=== PATIENT | female | born 1940 | race Caucasian/White ===

== ENCOUNTER 2022-08-03 15:13 | Emergency (ER) | payer MEDICARE ==
[2022-08-03 16:27] LABS: Basophils % (A) 0 %; Eosinophils # (A) 0.2 k/uL (0-0.7); Eosinophils % (A) 2 %; HCT 39.1 % (34.0-46.0); Lymphocytes # (A) 1.1 k/uL (1.0-4.8); Lymphocytes % (A) 12 %; MCH 33.2 pg (25.0-35.0); MCHC 33.3 g/dL (31.0-37.0); MCV 99.6 fL (80.0-100.0); Mean Platelet Volume 8.7; Monocytes # (A) 0.5 k/uL (0-1.0); Monocytes % (A) 5 %; Neutrophils # (A) 7.8 k/uL (1.3-7.7); Neutrophils % (A) 80 %; Platelet Count 236 k/uL (150-450); RBC 3.93 m/uL (3.80-5.40); RDW 12.6 % (11.5-15.5); WBC 9.8 k/uL (3.8-10.6)
[2022-08-03 16:41] LABS: Albumin 4.2 g/dL (3.5-5.0); Calcium 9.2 mg/dL (8.4-10.2); Total Bilirubin 1.9 mg/dL (0.2-1.3); Total Protein 7.1 g/dL (6.3-8.2)
[2022-08-03 16:52] LABS: Potassium 2.7 mmol/L (3.5-5.1)
[2022-08-03] MEDS ORDERED: POTASSIUM CHLORIDE ER 20 MEQ TAB.ER PO STA (17:03)
[2022-08-03] MEDS ORDERED: SODIUM CHLORIDE 0.9% 1,000 ML IV STA (17:06)
--- NOTE | 2022-08-03 17:54 | US ---
EXAMINATION TYPE: US abdomen limited DATE OF EXAM: 08/03/2022 COMPARISON: NONE CLINICAL HISTORY: pancreatitis, elevated LFT, elevated bili. Abdomen pain TECHNIQUE: Multiple sonographic images of the right upper quadrant are obtained. FINDINGS: EXAM MEASUREMENTS: Liver Length: 16.8 cm Gallbladder Wall: 0.2 cm CBD: 0.8 cm Right Kidney: 10.5 x 4.1 x 4.5 cm Pancreas: wnl Liver: wnl Gallbladder: wnl Evidence for sonographic Becker's sign: no CBD: dilated Right Kidney: wnl IMPRESSION: Common bile duct is large that could relate to gallbladder dysfunction. No gallstone seen.
--- NOTE | 2022-08-03 19:09 | CT ---
EXAMINATION TYPE: CT abdomen pelvis w con DATE OF EXAM: 08/03/2022 COMPARISON: None HISTORY: elevated LFTS, abd pain CT DLP: 840.3 mGycm CONTRAST: CT scan of the abdomen and pelvis is performed without Oral Contrast and with IV Contrast, patient in jected with 80 mL of Isovue 300. FINDINGS: LUNG BASES-: No visible nodule. No infiltrate. Sliding-type hiatal hernia. LIVER/GB: No calcified gallstones. No space occupying hepatic lesion. No intrahepatic biliary duct al prominence. Common bile duct is dilated at nearly 1 cm. Hyperemia gallbladder wall with a small am ount of pericholecystic fluid. No obvious obstructing calculus seen. PANCREAS: Inflammatory change an d edema about the pancreas compatible with acute pancreatitis. No evidence for a unusual collection s uch as pseudocyst or abscess. SPLEEN: No splenic enlargement. No lesion seen. ADRENALS: No nodule. No thickening. KIDNEYS/BLADDER: No hydronephrosis. No nephrolithiasis. No distinct renal mass. Urinary bladder g rossly unremarkable. BOWEL: Normal appendix. Normal bowel caliber. No inflammation. GENITAL ORGANS: Uterine calcifications may reflect underlying leiomyomatous change. No adnexal deanne s seen. LYMPH NODES: No greater than 1cm abdominal or pelvic lymph nodes are appreciated. AORTA: No significant abnormality. OSSEOUS STRUCTURES: No significant abnormality is seen. OTHER: No significant additional abnormality is seen. IMPRESSION: 1. Findings compatible with acute pancreatitis. 2. Hyperemia of the gallbladder wall with a small amount of pericholecystic fluid and mild dilatatio n of the intrahepatic biliary tree as well as the common bile duct.
--- NOTE | 2022-08-03 19:32 | ED ---
Abdominal Pain HPI - General Chief Complaint: Abdominal Pain Stated Complaint: pcp sent,abnormal labs Time Seen by Provider: 08/03/22 16:48 Source: patient Mode of arrival: ambulatory Limitations: no limitations - History of Present Illness Initial Comments: Patient is a 82-year-old female with a past medical history of hypertension who presents to the emergency department as requested from her primary care provider due to abnormal labs. Patient states 2 days ago she experienced generalized abdominal pain intermittently. No radiation. The same day she experienced nausea with 2 episodes of vomiting, nonbloody. Patient had 2 episodes of diarrhea yesterday, nonblodoy. States since yesterday all of her symptoms have resolved. She does not currently have abdominal pain, nausea, vomiting, or diarrhea. She was at her primary care office yesterday who anshu labs and found her liver enzymes and bilirubin to be elevated. There was also acute kidney injury. She was called today about results and sent to the emergency department. Patient states she feels well now. She denies fever, chills, burning with urination, abnormally colored urine and stools. Denies history of liver and gallbladder disease including hepatitis. Does admit to alcohol use, 2-3 glasses of wine a night. Denies drug use. Denies use of new medications. Patient's daughter is at bedside and states patient's skin seems a tinted yellow. - Related Data Home Medications Medication Instructions Recorded Confirmed Biotin 5 mg PO DAILY 08/03/22 08/03/22 Calcium Carbonate [Calcium] 600 mg PO DAILY 08/03/22 08/03/22 Cholecalciferol [Vitamin D3 (25 25 mcg PO DAILY 08/03/22 08/03/22 Mcg = 1000 Iu)] Cyanocobalamin (Vitamin B-12) 1,000 mcg PO DAILY 08/03/22 08/03/22 [Vitamin B-12] Glucosam/Aamir-Msm1/C/Getachew/Bosw 1 tab PO DAILY 08/03/22 08/03/22 [Glucosamine-Chondroitin Tablet] Losartan Potassium [Cozaar] 100 mg PO DAILY 08/03/22 08/03/22 Multivit-Min/FA/Lycopen/Lutein 1 tab PO DAILY 08/03/22 08/03/22 [Centrum Silver Tablet] Rosuvastatin [Crestor] 10 mg PO DAILY 08/03/22 08/03/22 Ubidecarenone [Co Q-10] 300 mg PO DAILY 08/03/22 08/03/22 hydroCHLOROthiazide [Hydrodiuril] 25 mg PO DAILY 08/03/22 08/03/22 Previous Rx's Medication Instructions Recorded Potassium Chloride ER [K-Dur 20] 20 meq PO BID #14 tab 08/03/22 Allergies Allergy/AdvReac Type Severity Reaction Status Date / Time No Known Allergies Allergy Verified 08/03/22 16:03 Review of Systems ROS Statement: Those systems with pertinent positive or pertinent negative responses have been documented in the HPI. ROS Other: All systems not noted in ROS Statement are negative. Past Medical History Past Medical History: Hyperlipidemia, Hypertension History of Any Multi-Drug Resistant Organisms: None Reported Past Surgical History: No Surgical Hx Reported Past Psychological History: No Psychological Hx Reported Smoking Status: Never smoker Past Alcohol Use History: Daily General Exam Limitations: no limitations General appearance: alert, in no apparent distress Head exam: Present: atraumatic, normocephalic, normal inspection Eye exam: Present: normal appearance, PERRL, EOMI. Absent: scleral icterus Respiratory exam: Present: normal lung sounds bilaterally. Absent: respiratory distress, wheezes, rales, rhonchi, stridor Cardiovascular Exam: Present: regular rate, normal rhythm, normal heart sounds. Absent: systolic murmur, diastolic murmur, rubs, gallop, clicks GI/Abdominal exam: Present: soft, normal bowel sounds. Absent: distended, tenderness, guarding, rebound, rigid Neurological exam: Present: alert, oriented X3, CN II-XII intact Psychiatric exam: Present: normal affect, normal mood Skin exam: Present: warm, dry, intact, normal color (no obvious jaundice ). Absent: rash Course Vital Signs 08/03/22 15:47 Temperature 97.1 F L Pulse Rate 87 Respiratory 16 Rate Blood Pressure 141/79 O2 Sat by Pulse 96 Oximetry Medical Decision Making - Medical Decision Making This is an 82-year-old female presenting with abnormal labs. Patient well- appearing and in no apparent distress. Afebrile. Abdomen is soft and nontender. There is no right upper quadrant tenderness. There is no obvious jaundice. There is no scleral icterus. Laboratory studies obtained. There is no leukocytosis. Potassium is critically low at 2.7. There is mild acute kidney injury at 1.09. Liver enzymes are elevated with AST of 56, ALT at 150, alk phos at 160. Bilirubin elevated at 1.9. Lipase extremely elevated at 3361. Amylase elevated at 163. Gallbladder ultrasound was obtained which shows common bile duct dilation that could relate to gallbladder dysfunction. No gallstones seen. CT of the abdomen and pelvis with contrast was obtained which showed findings compatible with acute pancreatitis. There is hyperemia of the gallbladder wall with a small amount pericholecystic fluid and mild dilation of the intrahepatic biliary tree as well as a common bile duct. Patient given a fluid bolus and potassium supplementation. Results discussed with patient. I highly encouraged admission for acute pancreatitis, nonspecific gallbladder findings, and hypokalemia however patient declined. Patient adamant that she has to go home to help her with peritoneal dialysis. Discussed risks of untreated conditions patient was diagnosed with today. Patient aware and will sign AGAINST MEDICAL ADVICE form. She will be discharged with potassium supplementation and instructed to have redraw of potassium by her primary care provider's office. Discussed acute pancreatitis in detail. Patient to follow up with GI specialist. Return parameters discussed. Patient verbalizes understanding. Dr. Cochran is my attending. - Lab Data Result diagrams: 08/03/22 16:00 08/03/22 16:00 Lab Results 08/03/22 08/03/22 08/03/22 Range/Units 16:00 16:00 16:00 WBC 9.8 (3.8-10.6) k/uL RBC 3.93 (3.80-5.40) m/uL Hgb 13.0 (11.4-16.0) gm/dL Hct 39.1 (34.0-46.0) % MCV 99.6 (80.0-100.0) fL MCH 33.2 (25.0-35.0) pg MCHC 33.3 (31.0-37.0) g/dL RDW 12.6 (11.5-15.5) % Plt Count 236 (150-450) k/uL MPV 8.7 Neutrophils % 80 % Lymphocytes % 12 % Monocytes % 5 % Eosinophils % 2 % Basophils % 0 % Neutrophils # 7.8 H (1.3-7.7) k/uL Lymphocytes # 1.1 (1.0-4.8) k/uL Monocytes # 0.5 (0-1.0) k/uL Eosinophils # 0.2 (0-0.7) k/uL Basophils # 0.0 (0-0.2) k/uL Sodium 136 L (137-145) mmol/L Potassium 2.7 L* (3.5-5.1) mmol/L Chloride 95 L (98-107) mmol/L Carbon Dioxide 26 (22-30) mmol/L Anion Gap 15 mmol/L BUN 31 H (7-17) mg/dL Creatinine 1.09 H (0.52-1.04) mg/dL Est GFR (CKD-EPI)AfAm 55 (>60 ml/min/1.73 sqM) Est GFR (CKD-EPI)NonAf 48 (>60 ml/min/1.73 sqM) Glucose 170 H (74-99) mg/dL Plasma Lactic Acid Adrian 1.5 (0.7-2.0) mmol/L Calcium 9.2 (8.4-10.2) mg/dL Total Bilirubin 1.9 H (0.2-1.3) mg/dL AST 56 H (14-36) U/L ALT 150 H (4-34) U/L Alkaline Phosphatase 160 H (38-126) U/L Total Protein 7.1 (6.3-8.2) g/dL Albumin 4.2 (3.5-5.0) g/dL Amylase 163 H (30-110) U/L Lipase 3361 H (23-300) U/L Disposition Clinical Impression: Elevated liver enzymes, Elevated bilirubin, Common bile duct dilatation, FRANCISCO J (acute kidney injury), Nausea & vomiting, Abdominal pain, Hypokalemia, Acute pancreatitis Disposition: Left Against Medical Advice Instructions (If sedation given, give patient instructions): Pancreatitis (ED), Acute Liver Failure (DC), Hypokalemia (ED) Additional Instructions: You are leaving AGAINST MEDICAL ADVICE. You have critically low potassium at 2.7. Electrolyte abnormalities can cause arrhythmias that may be fatal. You also have acute pancreatitis and common bile duct dilation. Please make an appointment with your primary care provider at earliest availability for repeat potassium level. Take supplementation prescription provided to you today. Start prescription tomorrow. Please follow up with GI specialist in 1-2 days. Clear liquid diet for the next 5 days. Afterwards please transition back to normal diet slowly. Stick to low protein and low fat diets. Avoid alcohol use. Prescriptions: Potassium Chloride ER [K-Dur 20] 20 meq PO BID #14 tab Is patient prescribed a controlled substance at d/c from ED?: No Referrals: Renan Pollard DO [Primary Care Provider] - 1-2 days Audrey Stauffer MD [STAFF PHYSICIAN] - 1-2 days Time of Disposition: 19:37
[2022-08-03 21:14] VITALS: BP 176/83; PULSE 68; RESP 18; TEMP 97.6
== END 2022-08-03 20:10 | disposition left against medical advice (07) ==
LOC: EC 15:13 → SUPCPDRO 15:13 → EC 20:25
DX: R74.01 Elevation of levels of liver transaminase levels (principal); E80.7 Disorder of bilirubin metabolism, unspecified; K83.9 Disease of biliary tract, unspecified; N17.9 Acute kidney failure, unspecified; E87.6 Hypokalemia; K85.90 Acute pancreatitis without necrosis or infection, unspecified; I10 Essential (primary) hypertension; E78.5 Hyperlipidemia, unspecified; Z79.811 Long term (current) use of aromatase inhibitors; Z79.899 Other long term (current) drug therapy
CPT/HCPCS: 36415; 80053; 82150; 83605; 83690; 85025; 76705; 74177; 99284; 96360; Q9967